=== PATIENT | female | born 1960 | race Caucasian/White ===

== ENCOUNTER 2022-09-22 07:16 | Day surgery (SDC) | payer MEDICARE ==
[~2022-09-22] VITALS: Ht 162.6 cm; Wt 124.3 kg
[~2022-09-22 07:16] MED LIST: ALPRAZOLAM0.5 MG PO; AUGMENTIN875TAB PO; BABY ASPIRIN81 MG OR; BENZONATATE200 MG PO; C-PAP IN; CHELATED MAGNE100 MG PO; CIPROFLOXACN500 MG PO; CLARITIN10 M1 PO; CO Q 10100 MG OR; CRESTOR5 MG PO; DICLOXACILL500 MG PO; DIFLUCAN100 MG PO; FISH OIL1200 MG OR; FISH OIL600 MG PO; FLEXERIL PO; FLEXERIL5 MG OR; FLEXERIL5 MG PO; HYDROXYZ HCL25 MG PO; LISINOPRIL20 M1 PO; LORTAB 5-325 MG1 TAB PO; LORTAB 7.5-3251 TAB PO; MECLIZINE25 M2 PO; MECLIZINE25 MG PO; MEDDOSEPAK PO; MEDROL4 M1 PO; MELOXICAM7.5 MG PO; METFORMIN HCL1000 MG PO; METOPROLOL TART50 MG PO; MOBIC7.5 MG PO; PAROXETINE20 MG PO; PERCOCET 5/325M1 TAB PO; PROAIR HFA IN; QVAR80 MCG IN; TIZANIDINE HCL4 M1 PO; TIZANIDINE4 MG PO; TRAMADOL HCL50 MG PO; TRIAMCINOLON0.11 EX
[2022-09-22 09:31] VITALS: BP 123/59
== END 2022-09-22 09:28 | disposition home or self-care (01) ==
LOC: ENDO 07:16 → ORM 08:45 → ENDO 09:28
PROVIDERS: ATTEND Surgery
PROC: 0DJD8ZZ Inspection of Lower Intestinal Tract, Via Natural or Artificial Opening Endoscopic (ICD-10-PCS; principal; 2022-09-22)
DX: K57.30 Diverticulosis of large intestine without perforation or abscess without bleeding (principal); K64.8 Other hemorrhoids; I10 Essential (primary) hypertension; E11.9 Type 2 diabetes mellitus without complications; E78.5 Hyperlipidemia, unspecified; F41.9 Anxiety disorder, unspecified; F32.A Depression, unspecified; Z79.84 Long term (current) use of oral hypoglycemic drugs